=== PATIENT | female | born 2000 | race Caucasian/White ===

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

== ENCOUNTER 2018-02-08 19:11 | Emergency (ER) | payer OTHER ==
[2018-02-08 19:19] VITALS: BP 128/78; PULSE 89; TEMP 98.2; BMI 44.7
--- NOTE | 2018-02-08 19:19 | PDOC ---
Rapid Medical Evaluation Time Seen by Provider: 02/08/18 19:15 Medical Evaluation: Allergies Allergy/AdvReac Type Severity Reaction Status Date / Time ibuprofen [From Advil] Allergy Intermediate Rash Verified 02/08/18 19:16 kiwi Allergy Intermediate Swelling Verified 02/08/18 19:16 aspirin Allergy Verified 02/08/18 19:16 I have performed a brief in-person evaluation of this patient. The patient presents with a chief complaint of: fever and cough x 3 days Pertinent physical exam findings: dry cough. afebrile. Lungs CTA. I have ordered the following: hcg The patient will proceed to the ED for further evaluation. Discharge Disposition - Referrals Referrals: Damian Bruce MD [Primary Care Provider] - - Patient Instructions - Post Discharge Activity
--- NOTE | 2018-02-08 19:28 | PDOC ---
History of Present Illness - General Chief Complaint: Cold Symptoms Stated Complaint: COLD SYMPTOMS Time Seen by Provider: 02/08/18 19:15 History Source: Patient Exam Limitations: No Limitations - History of Present Illness Initial Comments: 02/08/18 19:42 Patient is a 17-year-old female with no past medical history, who presents to the emergency department today with a cough for 2 days. Patient states that her boyfriend was sick with similar symptoms. She states that the cough is productive with green sputum. She states that the cough is painful and she now has back pain and pleuritic chest pain from coughing. Denies fevers, chills, rhinorrhea, ear pain, shortness of breath, difficulty breathing, nausea, vomiting and diarrhea. Past History - Travel Traveled outside of the country in the last 30 days: No Close contact w/someone who was outside of country & ill: No - Past Medical History Allergies/Adverse Reactions: Allergies Allergy/AdvReac Type Severity Reaction Status Date / Time ibuprofen [From Advil] Allergy Intermediate Rash Verified 02/08/18 19:16 kiwi Allergy Intermediate Swelling Verified 02/08/18 19:16 aspirin Allergy Verified 02/08/18 19:16 Home Medications: Ambulatory Orders Albuterol 0.083% Nebulizer Ania [Ventolin 0.083% Nebulizer Soln -] 1 neb NEB Q4H #20 vial 02/08/18 Guaifenesin Dm [Robitussin Dm -] 10 ml PO Q6H #200 ml 02/08/18 predniSONE [Deltasone -] 40 mg PO DAILY #8 tablet 02/08/18 Asthma: Yes Cancer: No Cardiac Disorders: No COPD: No Diabetes: No HTN: No Seizures: No Thyroid Disease: No - Family Disease History Family Disease History: Heart Disease: Grandparents (pgf) - Immunization History Immunization Up to Date: Yes - Suicide/Smoking/Psychosocial Hx Smoking Status: No Smoking History: Never smoked Have you smoked in the past 12 months: No Number of Cigarettes Smoked Daily: 0 Hx Alcohol Use: Yes (SOCIAL) Drug/Substance Use Hx: No Substance Use Type: None Hx Substance Use Treatment: No Review of Systems - Review of Systems Able to Perform ROS?: Yes Comments:: 02/08/18 19:28 CONSTITUTIONAL: Absent: fever, chills, diaphoresis, generalized weakness, malaise, loss of appetite HEENT: Present: nasal congestion, sore throat Absent: rhinorrhea, nasal congestion, throat pain, throat swelling, difficulty swallowing, mouth swelling, ear pain, eye pain, visual Changes CARDIOVASCULAR: Present: pleuritic chest pain Absent: loss of consciousness, palpitations, irregular heart rate, peripheral edema RESPIRATORY: Present: productive cough Absent: shortness of breath, dyspnea with exertion, orthopnea, wheezing, stridor, hemoptysis GASTROINTESTINAL: Absent: abdominal pain, abdominal distension, nausea, vomiting, diarrhea, constipation, melena, hematochezia GENITOURINARY: Absent: dysuria, frequency, urgency, hesitancy, hematuria, flank pain, genital pain MUSCULOSKELETAL: Absent: myalgia, arthralgia, joint swelling SKIN: Absent: rash, itching, pallor HEMATOLOGIC/IMMUNOLOGIC: Absent: easy bleeding, easy bruising, lymphadenopathy, frequent infections ENDOCRINE: Absent: unexplained weight gain, unexplained weight loss, heat intolerance, cold intolerance NEUROLOGIC: Absent: headache, focal weakness or paresthesias, dizziness, unsteady gait, seizure, mental status changes, bladder or bowel incontinence PSYCHIATRIC: Absent: anxiety, depression, suicidal or homicidal ideation, hallucinations. 02/08/18 19:43 Is the patient limited Mohawk proficient: No *Physical Exam - Vital Signs Last Vital Signs Temp Pulse Resp BP Pulse Ox 98.2 F 89 18 128/78 97 02/08/18 19:16 02/08/18 19:16 02/08/18 19:16 02/08/18 19:16 02/08/18 19:16 - Physical Exam Comments: 02/08/18 19:28 GENERAL: Well developed, well nourished. Awake and alert. No acute distress. HEENT: Normocephalic, atraumatic. PERRLA, EOMI. No conjunctival pallor. Sclera are non- icteric. Moist mucous membranes. Oropharynx is clear. NECK: Supple. Full ROM. No JVD. Carotid pulses 2+ and symmetric, without bruits. No thyromegaly. No lymphadenopathy. CARDIOVASCULAR: Regular rate and rhythm. No murmurs, rubs, or gallops. Distal pulses are 2+ and symmetric. PULMONARY: Dry tight cough. No evidence of respiratory distress. Lungs clear to auscultation bilaterally however sounds tight. No wheezing, rales or rhonchi. ABDOMINAL: Soft. Non-tender. Non-distended. No rebound or guarding. No organomegaly. Normoactive bowel sounds. MUSCULOSKELETAL Normal range of motion at all joints. No bony deformities or tenderness. No CVA tenderness. EXTREMITIES: No cyanosis. No clubbing. No edema. No calf tenderness. SKIN: Warm and dry. Normal capillary refill. No rashes. No jaundice. NEUROLOGICAL: Alert, awake, appropriate. Cranial nerves 2-12 intact. No deficits to light touch and temperature in face, upper extremities and lower extremities. No motor deficits in the in face, upper extremities and lower extremities. Normoreflexic in the upper and lower extremities. Normal speech. Toes are down- going bilaterally. Gait is normal without ataxia. Medical Decision Making - Medical Decision Making 02/08/18 19:45 Patient is a 17-year-old female past medical history of asthma, who presents emergency department today complaining of productive cough for 2 days. Exam with tight lung sounds otherwise unremarkable. Chest pain is reproducible with coughing. We will treat at this time for her cough. We'll reevaluate. 02/08/18 20:24 Pt. feels better after duoneb and robitussin. Lung sounds more open at this time. Will d/c home with albuterol nebulizer and steroids. Return precautions given. Pt. understands all d/c instructions and all questions were answered. *DC/Admit/Observation/Transfer Diagnosis at time of Disposition: Asthma exacerbation Qualifiers: Asthma severity: mild Asthma persistence: intermittent Qualified Code(s): J45.21 - Mild intermittent asthma with (acute) exacerbation Upper respiratory infection Qualifiers: URI type: unspecified viral URI Qualified Code(s): J06.9 - Acute upper respiratory infection, unspecified - Discharge Dispostion Disposition: HOME Condition at time of disposition: Stable Admit: No - Prescriptions Prescriptions: Albuterol 0.083% Nebulizer Ania [Ventolin 0.083% Nebulizer Soln -] 1 neb NEB Q4H #20 vial Guaifenesin Dm [Robitussin Dm -] 10 ml PO Q6H #200 ml predniSONE [Deltasone -] 40 mg PO DAILY #8 tablet - Referrals Referrals: Damian Bruce MD [Primary Care Provider] - - Patient Instructions Printed Discharge Instructions: DI for Viral Upper Respiratory Infection -- Adult Additional Instructions: You have a cold or upper respiratory infection. This is also affecting her asthma. Please use her inhaler every 4 hours. Your also prescribed nebulizer treatments. You may use the nebulizer or your inhaler every 4 hours. Please take the Robitussin every 6 hours as needed for cough. Please take the prednisone daily for the next 4 days to help reduce the cough. Follow the instructions on the bottle. Drink plenty of fluids. Follow-up with her primary care doctor in 1 week. Return to the emergency department if you have worsening cough, worsening chest pain, difficulty breathing, shortness of breath, new fevers, or any changes in your symptoms. - Post Discharge Activity Forms/Work/School Notes: Back to Work
[2018-02-08] MEDS ORDERED: guaiFENesin 200 MG/10 ML 10 ML UNIT-DOSE CUPS PO ONE (19:41)
[2018-02-08] MEDS ORDERED: ALBUTEROL SO4 2.5/IPRATROPIUM 0.5 INH SOL 3 ML VIAL.NEB. NEB ONE ×2 (19:41→19:51)
[2018-02-08] MEDS ORDERED: ACETAMINOPHEN 325 MG TABLET (FP) PO ONE (19:41)
[2018-02-08] MEDS ORDERED: guaiFENesin/D-METHORPHAN HB 10 ML UNIT-DOSE CUPS ONE (19:51)
[2018-02-08] MEDS ORDERED: ACETAMINOPHEN 325 MG TABLET (FP) ONE (19:51)
== END 2018-02-08 21:11 | disposition home or self-care (01) ==
LOC: JERFT 19:11
PROC: 3E0F7GC Introduction of Other Therapeutic Substance into Respiratory Tract, Via Natural or Artificial Opening (ICD-10-PCS; principal; 2018-02-08)
DX: J45.21 Mild intermittent asthma with (acute) exacerbation (principal); J06.9 Acute upper respiratory infection, unspecified
CPT/HCPCS: 84703; 99281-25

== ENCOUNTER 2018-09-21 09:31 | Emergency (ER) | payer OTHER ==
[2018-09-21 09:41] VITALS: BP 138/76; PULSE 83; TEMP 98.6; BMI 44.4
[2018-09-21] MEDS ORDERED: ACETAMINOPHEN 500 MG TABLET (FP) PO ONE (11:05)
[2018-09-21] MEDS ORDERED: ACETAMINOPHEN 325 MG TABLET (FP) ONE (11:10)
--- NOTE | 2018-09-21 11:11 | PDOC ---
History of Present Illness - General Chief Complaint: Sore Throat Stated Complaint: MIGRAINE HEADACHE, SORE THROAT Time Seen by Provider: 09/21/18 10:54 History Source: Patient Exam Limitations: No Limitations - History of Present Illness Initial Comments: 09/21/18 11:05 HISTORY OF PRESENT ILLNESS: Sit 18-year-old woman denies medical history presents emergency departments with sore throat for 4 days, dry productive cough with green sputum and frontal headache. Patient reports her headache started approximately one week ago with a slow crescendo but is improved over the past 2 days. Patient's LMP was 08/22/18. Patient denies difficulty breathing , difficulty swallowing, painful swallowing, hoarseness, change in voice, chest pain, shortness of breath. No recent travel or sick contacts. PAST MEDICAL HISTORY: Denies past medical history SURGICAL HISTORY: Denies ALLERGIES: Ibuprofen, aspirin, kiwis REVIEW OF SYSTEMS General/Constitutional: Denies fever or chills. Denies weakness, weight change. HEENT: Denies change in vision. Denies ear pain or discharge. +sore throat. Cardiovascular: Denies chest pain or shortness of breath. Respiratory: Dry productive cough. Denies wheezing, or hemoptysis. Gastrointestinal: Denies nausea, vomiting, diarrhea or constipation. Denies rectal bleeding. Genitourinary: Denies dysuria, frequency, or change in urination. Musculoskeletal: Denies joint or muscle swelling or pain. Denies neck or back pain. Skin and breasts: Denies rash or easy bruising. Neurologic: Frontal headache. Denies vertigo, loss of consciousness, or loss of sensation. Psychiatric: Denies depression or anxiety. Endocrine: Denies increased thirst. Denies abnormal weight change. Hematologic/Lymphatic: Denies anemia, easy bleeding, or history of blood clots. Allergic/Immunologic: Denies hives or skin allergy. Denies latex allergy. PHYSICAL EXAM General Appearance: Well-appearing, appropriately dressed. No apparent distress , no intoxication. HEENT: EOMI, PERRLA, normal voice, TMs normal. No conjunctival pallor. No photophobia, scleral icterus. Oropharynx erythematous with +3 tonsils present. No exudates or lesions present. Neck: Supple. Trachea midline. No tenderness, rigidity, carotid bruit, stridor , lymphadenopathy, or thyromegaly. Respiratory/Chest: Lungs CTAB. No shortness of breath, chest tenderness, respiratory distress, accessory muscle use. No crackles, rales, rhonchi, stridor , wheezing, dullness Cardiovascular: RRR. S1, S2. No JVD, murmur, bradycardia, tachycardia. Vascular Pulses: Dorsalis-Pedis (R): 2+, Dorsalis-Pedis (L): 2+ Gastrointestinal/Abdominal: Normal bowel sounds. Abdomen soft, non-distended. No tenderness or rebound tenderness. No organomegaly, pulsatile mass, guarding, hernia, hepatomegaly, splenomegaly. Lymphatic: No adenopathy, tenderness. Musculoskeletal/Extremities: Normal inspection. FROM of all extremities, normal capillary refill. Pelvis Stable. No CVA tenderness. No tenderness to extremities, pedal edema, swelling, erythema or deformity. Integumentary: Appropriate color, dry, warm. No cyanosis, erythema, jaundice or rash Neurologic: waste transportation technician II-XII intact. Fully oriented, alert. Appropriate mood/affect. Motor strength 5/5. No appreciable EOM palsy, facial droop or sensory deficit. Past History - Past Medical History Allergies/Adverse Reactions: Allergies Allergy/AdvReac Type Severity Reaction Status Date / Time ibuprofen [From Advil] Allergy Intermediate Rash Verified 09/21/18 09:37 kiwi Allergy Intermediate Swelling Verified 09/21/18 09:37 aspirin Allergy Verified 09/21/18 09:37 Home Medications: Ambulatory Orders NK [No Known Home Medication] 09/21/18 Asthma: Yes Cancer: No Cardiac Disorders: No COPD: No Diabetes: No HTN: No Seizures: No Thyroid Disease: No - Family Disease History Family Disease History: Heart Disease: Grandparents (pgf) - Immunization History Immunization Up to Date: Yes - Suicide/Smoking/Psychosocial Hx Smoking Status: No Smoking History: Never smoked Have you smoked in the past 12 months: No Number of Cigarettes Smoked Daily: 0 Information on smoking cessation initiated: No Hx Alcohol Use: No Drug/Substance Use Hx: No Substance Use Type: Marijuana Hx Substance Use Treatment: No *Physical Exam - Vital Signs Last Vital Signs Temp Pulse Resp BP Pulse Ox 98.6 F 83 16 138/76 99 09/21/18 09:38 09/21/18 09:38 09/21/18 09:38 09/21/18 09:38 09/21/18 09:38 Medical Decision Making - Medical Decision Making 09/21/18 11:09 A/P: 18-year-old female with headache for one week and sore throat and productive cough for 4 days 3+ tonsils present rate no exudates or lesions present. No cervical lymphadenopathy present. No stridor present. Lungs clear to auscultation bilaterally. Cranial nerves II through XII grossly intact. Full sensation noted to face to light touch. Gait steady PERRLA, EOMI. Physical exam is consistent with a tonsillitis. I will collect a rapid strep to rule out bacterial etiology. Patient currently with headache 01/14 which occurs monthly around her menstrual cycles. I'll give the patient Tylenol for her headache as well as neurologic exam is within normal limits. 09/21/18 11:48 rapid strep testing is negative. discharge the patient home symptomatic treatment of a tonsillitis. *DC/Admit/Observation/Transfer Diagnosis at time of Disposition: Acute tonsillitis Qualifiers: Pharyngitis/tonsillitis etiology: unspecified etiology Qualified Code(s): J03.90 - Acute tonsillitis, unspecified - Discharge Dispostion Disposition: HOME Condition at time of disposition: Stable Decision to Admit order: No - Referrals Referrals: Damian Bruce MD [Primary Care Provider] - - Patient Instructions Additional Instructions: Rest, drink lots of fluids: Teas, water, soups, Pedialyte Saltwater gargles Steamy showers/seem to face break up mucus Avoid contact with others until fevers and cough resolved Lots of handwashing and good hygiene Continue [id number] medications for symptomatic relief Tylenol or Motrin for fever and pain Followup with private physician in one to 2 days as needed Return to emergency department for worsened symptoms, fevers, dehydration - Post Discharge Activity Forms/Work/School Notes: Back to Work
== END 2018-09-21 11:53 | disposition home or self-care (01) ==
LOC: JERFT 09:31
DX: J03.90 Acute tonsillitis, unspecified (principal)
CPT/HCPCS: 87070; 99281-25

== ENCOUNTER 2024-11-11 12:06 | Emergency (ER) | payer OTHER ==
[2024-11-11 12:13] VITALS: BP 109/68; PULSE 79; RESP 18; TEMP 98.2; BMI 26.3
[2024-11-11 13:07] LABS: HCG,QUALITATIVE URINE Positive; URINE APPEARANCE CLOUDY; URINE BILIRUBIN NEGATIVE (NEGATIVE); URINE COLOR YELLOW; URINE GLUCOSE (UA) NEGATIVE (NEGATIVE); URINE KETONE NEGATIVE (NEGATIVE); URINE LEUK ESTERASE NEGATIVE (NEGATIVE); URINE NITRITE NEGATIVE (NEGATIVE); URINE PROTEIN NEGATIVE (NEGATIVE); URINE UROBILINOGEN 0.2 mg/dL (0.2-1.0)
[2024-11-11 13:11] LABS: BASO % 0.2 % (0-2.0); EOS % 1.1 % (0-4.5); HEMATOCRIT 31.8 % (32.4-45.2); HEMOGLOBIN 10.7 GM/dL (10.7-15.3); LYMPH % 19.5 % (8-40); MCH 29.1 pg (25.7-33.7); MCHC 33.7 g/dl (32.0-36.0); MEAN CELL VOLUME 86.2 fl (80-96); MEAN PLT VOLUME 6.5 fl (7.5-11.1); MONO % 5.8 % (3.8-10.2); NEUT % 73.4 % (42.8-82.8); PLATELET COUNT 371 10^3/uL (134-434); RBC 3.69 M/mm3 (3.60-5.2); RDW 13.5 % (11.6-15.6); WHITE BLOOD COUNT 8.6 K/mm3 (4.0-10.0)
[2024-11-11 13:33] LABS: POTASSIUM 3.8 mmol/L (3.5-5.1)
[2024-11-11 13:36] LABS: ALBUMIN 3.2 g/dl (3.4-5.0); BLOOD UREA NITROGEN 13.8 mg/dL (7-18); CALCIUM 8.5 mg/dL (8.5-10.1)
[2024-11-11 13:39] LABS: CREATININE 0.5 mg/dL (0.55-1.3)
[2024-11-11 13:41] LABS: BILIRUBIN,TOTAL 0.4 mg/dL (0.2-1); TOT PROT 6.5 g/dl (6.4-8.2)
== END 2024-11-11 14:37 | disposition home or self-care (01) ==
LOC: JER 12:06
DX: O26.891 Other specified pregnancy related conditions, first trimester (principal); R10.30 Lower abdominal pain, unspecified; Z3A.09 9 weeks gestation of pregnancy
CPT/HCPCS: 36415; 76817-TC; 80053; 81003; 84702; 84703; 85025; 86850; 86900; 86901; 87086; 99284-25